=== PATIENT | female | born 1990 | race Caucasian/White ===

== ENCOUNTER 2016-08-15 18:12 | Emergency (ER) | payer OTHER, BC ==
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
[2016-08-15 19:11] VITALS: BP 132/81
== END 2016-08-15 19:09 | disposition home or self-care (01) ==
LOC: ER 18:12
DX: O9A.212 Injury, poisoning and certain other consequences of external causes complicating pregnancy, second trimester (principal); S39.91XA Unspecified injury of abdomen, initial encounter; V49.40XA Driver injured in collision with unspecified motor vehicles in traffic accident, initial encounter; O26.892 Other specified pregnancy related conditions, second trimester; R10.84 Generalized abdominal pain; R00.0 Tachycardia, unspecified; O99.89 Other specified diseases and conditions complicating pregnancy, childbirth and the puerperium; M79.642 Pain in left hand; O16.2 Unspecified maternal hypertension, second trimester; Z3A.16 16 weeks gestation of pregnancy; Z88.2 Allergy status to sulfonamides
CPT/HCPCS: 99284

== ENCOUNTER 2016-11-26 18:49 | Outpatient (CLI) | payer BC ==
[2016-11-26 19:52] LABS: APPEARANCE,URINE SLIGHTLY-CLOUDY; BILIRUBIN,URINE NEGATIVE (NEGATIVE); GLUCOSE, URINE NEGATIVE (NEGATIVE); KETONES,URINE NEGATIVE (NEGATIVE); LEUKOCYTE ESTERASE,URINE TRACE (NEGATIVE); NITRITE,URINE NEGATIVE (NEGATIVE); PROTEIN,URINE NEGATIVE (NEGATIVE); URINE SPECIFIC GRAVITY 1.013; UROBILINOGEN,URINE NEGATIVE mg/dL (<2.0)
[2016-11-26 19:58] LABS: URINE BARBITURATES SCREEN NEGATIVE; URINE METHADONE SCREEN NEGATIVE; URINE OPIATES LOW NEGATIVE; URINE PHENCYCLIDINE SCREEN NEGATIVE
== END 2016-11-26 19:56 | disposition home or self-care (01) ==
LOC: LC 18:49
PROVIDERS: ATTEND Student in an Organized Health Care Education/Training Program
PROC: 4A1HXCZ Monitoring of Products of Conception, Cardiac Rate, External Approach (ICD-10-PCS; principal; 2016-11-26)
DX: O47.02 False labor before 37 completed weeks of gestation, second trimester (principal); O36.8120 Decreased fetal movements, second trimester, not applicable or unspecified; Z3A.27 27 weeks gestation of pregnancy
CPT/HCPCS: 80307; 81001

== ENCOUNTER 2018-10-04 13:23 | Emergency (ER) | payer BC ==
[2018-10-04 13:35] VITALS: BP 154/92
[2018-10-04] MEDS ORDERED: KETOROLAC TROMETHAMINE INJ/PF 30 MG/1 ML SDV IM ONE (13:49)
--- NOTE | 2018-10-04 13:51 | ER Document Report ---
ED Medical Screen (RME) - General Chief Complaint: Possible Kidney Stone Stated Complaint: LEFT FLANK PAIN, ABDOMINAL PAIN Time Seen by Provider: 10/04/18 13:44 Primary Care Provider: LISA JACKSON MD [Primary Care Provider] - Follow up as needed Mode of Arrival: Ambulatory Information source: Patient TRAVEL OUTSIDE OF THE [place] IN LAST 30 DAYS: No - HPI Patient complains to provider of: LEFT FLANK PAIN Notes: 10/04/18 13:50 Patient here with complaints of left flank and abdominal pain. She states that she was woke up at 4 AM with sudden pain/contraction type feeling in her left lower back, flank, lower abdomen area. She was seen in urgent care and was told that she has signs of a urinary tract infection and was placed on antibiotics. She states that she continues to get waves of severe pain. She denies any pain currently. She has no personal history of kidney stones, but there is a family history of kidney stones. Urine was negative at the urgent care. Exam No distress, nontoxic-appearing. Lungs clear and equal throughout. Heart sounds normal. Mild left-sided CVA tenderness to percussion. Plan CBC, CMP, lipase, urine, urine , CT abdomen pelvis stone protocol, IM Toradol. An initial examination was made on the patient as part of the triage process, and it was determined a more comprehensive evaluation was necessary. Initial labs were ordered and patient was transferred to another provider in the ED who assumed care and finished evaluation and plan. - Related Data Allergies/Adverse Reactions: Sulfa (Sulfonamide Antibiotics) Allergy (Severe, Verified 10/04/18 13:26) Hives Past Medical History - Social History Chew tobacco use (# tins/day): No Frequency of alcohol use: None Drug Abuse: None - Past Medical History Cardiac Medical History: Reports: Hx Hypercholesterolemia, Hx Hypertension Neurological Medical History: Reports: Hx Migraine Renal/ Medical History: Denies: Hx Peritoneal Dialysis Past Surgical History: Reports: Hx Cholecystectomy - Immunizations Immunizations up to date: Yes Hx Diphtheria, Pertussis, Tetanus Vaccination: Yes Physical Exam - Vital signs Vitals: Temp Pulse Resp BP Pulse Ox 98.3 F 85 16 154/92 H 97 10/04/18 13:33 10/04/18 13:33 10/04/18 13:33 10/04/18 13:33 10/04/18 13:33 Course - Vital Signs Vital signs: Temp Pulse Resp BP Pulse Ox 98.3 F 85 16 154/92 H 97 10/04/18 13:33 10/04/18 13:33 10/04/18 13:33 10/04/18 13:33 10/04/18 13:33 Doctor's Discharge - Discharge Referrals: LISA JACKSON MD [Primary Care Provider] - Follow up as needed
[2018-10-04 14:23] LABS: ABSOLUTE EOSINOPHILS # (AUTO) 0.2 10^3/uL (0.0-0.6); ABSOLUTE LYMPHOCYTES (AUTO) 1.5 10^3/uL (0.5-4.7); ABSOLUTE MONOCYTES (AUTO) 0.6 10^3/uL (0.1-1.4); ABSOLUTE NEUT (AUTO) 6.6 10^3/uL (1.7-8.2); BASOPHILS % (AUTO) 0.4 % (0-2); EOSINOPHILS % (AUTO) 2.3 % (0-6); HEMATOCRIT 39.5 % (36.0-47.0); HEMOGLOBIN 13.2 g/dL (12.0-15.5); LYMPHOCYTES % (AUTO) 17.3 % (13-45); MEAN CORPUSCULAR HEMOGLOBIN 28.4 pg (27.0-33.4); MEAN CORPUSCULAR HGB CONC 33.3 g/dL (32.0-36.0); MEAN CORPUSCULAR VOLUME 85 fl (80-97); MONOCYTES % (AUTO) 6.3 % (3-13); PLATELET COUNT 303 10^3/uL (150-450); RED BLOOD COUNT 4.63 10^6/uL (3.72-5.28); RED CELL DISTRIBUTION WIDTH 13.6 % (11.5-14.0); SEGMENTED NEUTROPHILS % (AUTO) 73.7 % (42-78); TOTAL CELLS COUNTED % (AUTO) 100 %; WHITE BLOOD COUNT 8.9 10^3/uL (4.0-10.5)
[2018-10-04 14:28] LABS: APPEARANCE,URINE CLEAR; BILIRUBIN,URINE NEGATIVE (NEGATIVE); GLUCOSE, URINE NEGATIVE (NEGATIVE); KETONES,URINE NEGATIVE (NEGATIVE); LEUKOCYTE ESTERASE,URINE NEGATIVE (NEGATIVE); NITRITE,URINE POSITIVE (NEGATIVE); PROTEIN,URINE NEGATIVE (NEGATIVE); URINE SPECIFIC GRAVITY 1.012
[2018-10-04 14:29] LABS: COLOR,URINE ORANGE
[2018-10-04 14:39] LABS: ALANINE AMINOTRANSFERASE 53 U/L (9-52); ALBUMIN 4.5 g/dL (3.5-5.0); ALKALINE PHOSPHATASE 83 U/L (38-126); ANION GAP 11 (5-19); ASPARTATE AMINO TRANSFERASE 28 U/L (14-36); BILIRUBIN,TOTAL 0.5 mg/dL (0.2-1.3); BLOOD UREA NITROGEN 12 mg/dL (7-20); CALCIUM 9.6 mg/dL (8.4-10.2); CARBON DIOXIDE 26 mmol/L (22-30); CHLORIDE 105 mmol/L (98-107); GLUCOSE 88 mg/dL (75-110); LIPASE 110.5 U/L (23-300); POTASSIUM 4.3 mmol/L (3.6-5.0); SODIUM 142.4 mmol/L (137-145); TOTAL PROTEIN 7.8 g/dL (6.3-8.2)
--- NOTE | 2018-10-04 15:32 | RADIOLOGY REPORT (SQ) ---
EXAM DESCRIPTION: CT ABD/PELVIS NO ORAL OR IV COMPLETED DATE/TIME: 10/04/2018 3:18 pm REASON FOR STUDY: LEFT FLANK AND ABDO PAIN COMPARISON: 06/29/2012 TECHNIQUE: CT scan of the abdomen and pelvis performed without intravenous or oral contrast. Images reviewed with lung, soft tissue, and bone windows. Reconstructed coronal and sagittal MPR images revi ewed. All images stored on PACS. All CT scanners at this facility use dose modulation, iterative reconstruction, and/or weight based d osing when appropriate to reduce radiation dose to as low as reasonably achievable (ALARA). [facility]: Dose Right [facility]: CareDose [facility]: Dose Right [facility]: Teradose 4D [facility]: Smart Th[employer]chemy RADIATION DOSE: CT Rad equipment meets quality standard of care and radiation dose reduction techniq ues were employed. CTDIvol: 17.3 mGy. DLP: 897 mGy-cm.mGy. LIMITATIONS: None. FINDINGS: LOWER CHEST: No significant findings. No nodules or infiltrates. NON-CONTRASTED LIVER, SPLEEN, ADRENALS: Evaluation limited by lack of IV contrast. No identified sign ificant masses. PANCREAS: No masses. No peripancreatic inflammatory changes. GALLBLADDER: Surgically absent. RIGHT KIDNEY AND URETER: No cysts identified. No solid masses. Tiny parenchymal calcified stones. No hydronephrosis or hydroureter. LEFT KIDNEY AND URETER: No cysts identified. No solid masses. Tiny parenchymal calcified stones. 2 mm calcified stone in the distal left ureter with mild hydronephrosis -hydroureter. AORTA AND RETROPERITONEUM: No aneurysm. No retroperitoneal masses or adenopathy. BOWEL AND PERITONEAL CAVITY: No obvious masses or inflammatory changes. No free fluid. APPENDIX: Normal. PELVIS, BLADDER, AND ABDOMINAL WALL:No abnormal masses. No free fluid. Unremarkable bladder. BONES: No acute findings. OTHER: No other significant finding. IMPRESSION: 2 mm calcified stone in the distal left ureter with mild hydronephrosis -hydroureter. TECHNICAL DOCUMENTATION: JOB ID: [id number] Quality ID # [id number]: Final reports with documentation of one or more dose reduction techniques (e.g., Au tomated exposure control, adjustment of the mA and/or kV according to patient size, use of iterative reconstruction technique) 2010 [employer]- All Rights Reserved Reading location - IP/workstation name: [email or web address]
[2018-10-04] MEDS ORDERED: METOCLOPRAMIDE HCL 10 MG TABLET PO ONE (15:37)
--- NOTE | 2018-10-04 15:47 | ER Document Report ---
ED General - General Chief Complaint: Possible Kidney Stone Stated Complaint: LEFT FLANK PAIN, ABDOMINAL PAIN Time Seen by Provider: 10/04/18 13:44 Primary Care Provider: LISA JACKSON MD [Primary Care Provider] - Follow up as needed Mode of Arrival: Ambulatory Information source: Patient TRAVEL OUTSIDE OF THE [place] IN LAST 30 DAYS: No - HPI Patient complains to provider of: Suprapubic pain Onset: Other - 4:00 this morning Onset/Duration: Sudden Quality of pain: Sharp Severity: Severe Pain Level: 4 Associated symptoms: denies: Chills, Fever Exacerbated by: Denies Relieved by: Denies Similar symptoms previously: No Recently seen / treated by doctor: No Notes: 27-year-old female here with suprapubic pain and also some left-sided back pain. This sharp stabbing pain awakened her from sleep around 4:00 this morning. She went to see the doctor at the [facility]. Told her she had a UTI. Pain is worse. No fevers or chills. Emesis x2. No previous history of anything like this in the past. - Related Data Allergies/Adverse Reactions: Sulfa (Sulfonamide Antibiotics) Allergy (Severe, Verified 10/04/18 13:26) Hives Past Medical History - General Information source: Patient - Social History Smoking Status: Never Smoker Chew tobacco use (# tins/day): No Frequency of alcohol use: None Drug Abuse: None Family History: Reviewed & Not Pertinent Patient has suicidal ideation: No Patient has homicidal ideation: No - Past Medical History Cardiac Medical History: Reports: Hx Hypercholesterolemia, Hx Hypertension Neurological Medical History: Reports: Hx Migraine Renal/ Medical History: Denies: Hx Peritoneal Dialysis Past Surgical History: Reports: Hx Cholecystectomy - Immunizations Immunizations up to date: Yes Hx Diphtheria, Pertussis, Tetanus Vaccination: Yes Review of Systems - Review of Systems Notes: Constitutional: No fevers. No chills. EENT: No eye redness. No eye pain. No ear pain. No sore throat. Cardiovascular: No chest pain. No palpitations. Respiratory: No cough. No shortness of breath. No respiratory distress. Gastrointestinal: No abdominal pain. No nausea, vomiting, or diarrhea. Genitourinary: Positive for vaginal pain Musculoskeletal: Positive for left low back pain Skin: No rash or lesions. Lymphatic: No swollen lymph nodes. Neurologic: No headache. No syncope. Psychiatric: No suicidal or homicidal ideation. Physical Exam - Vital signs Vitals: Temp Pulse Resp BP Pulse Ox 98.3 F 85 16 154/92 H 97 10/04/18 13:33 10/04/18 13:33 10/04/18 13:33 10/04/18 13:33 10/04/18 13:33 - Notes Notes: General: Well-developed, well-nourished. In no acute distress. Non-toxic appearing. Cardiac: Well-perfused. Regular rate and rhythm. No murmurs, rubs, or gallops. Pulmonary: No respiratory distress. No cyanosis. Bilateral lung fiels are clear to auscultation. Abdominal: Non-distended. Non-rigid. Bowels sounds are present in all four quadrants. No guarding or rebound. HEENT: Head is atraumatic. Conjunctivae not reddened. No tearing. PERRL. EOMI. Orbits atraumatic. No periorbital swelling or erythema. Oropharynx is without erythema, swelling, or exudates. Neck: Supple. No adenopathy. No meningismus. Dermatologic: Warm with good turgor. No rash. Atraumatic. Chest: Atraumatic. No chest wall tenderness to palpation. Musculoskeletal: Moves all extremities well. No range of motion deficits. no muscular or joint tenderness. No paraspinal muscle tenderness. no midline spinal tenderness or step-off. Genitourinary: Examination deferred Neurologic: No gross neurologic deficits. Psychiatric: Normal mood. Course - Re-evaluation Re-evalutation: 10/04/18 15:44 No sign of UTI. There is a tiny left distal ureteral stone identified by CT. We will go ahead and give the patient some Reglan as she is having a little bit of nauseousness. Discharge her home with instructions for kidney stones. [place] as needed for moderate to severe pain. Also encouraged to ibuprofen use for mild to moderate pain. - Vital Signs Vital signs: Temp Pulse Resp BP Pulse Ox 98.3 F 85 16 154/92 H 97 10/04/18 13:33 10/04/18 13:33 10/04/18 13:33 10/04/18 13:33 10/04/18 13:33 - Laboratory Result Diagrams: 10/04/18 13:35 10/04/18 13:35 Laboratory results interpreted by me: 10/04/18 10/04/18 13:35 13:35 ALT 53 H Urine Nitrite POSITIVE H Urine Urobilinogen 4.0 H Discharge - Discharge Clinical Impression: Kidney stone Condition: Good Disposition: HOME, SELF-CARE Instructions: Kidney Stone (OM) Additional Instructions: Push clear fluids to increase urine output which will help push the stone along. Return to the ER at any time if you have intractable pain or vomiting. Follow- up with your primary care doctor as a routine basis. Prescriptions: Hydrocodone/Acetaminophen [[place] 5-325 mg Tablet] 1 tab PO Q6HP PRN #12 tablet PRN Reason: Metoclopramide HCl [Reglan 10 mg Tablet] 1 tab PO Q6HP PRN #20 tablet PRN Reason: Forms: Elevated Blood Pressure Referrals: LISA JACKSON MD [Primary Care Provider] - Follow up as needed
== END 2018-10-04 16:12 | disposition home or self-care (01) ==
LOC: ER 13:23
DX: N13.2 Hydronephrosis with renal and ureteral calculous obstruction (principal); R11.2 Nausea with vomiting, unspecified; I10 Essential (primary) hypertension; R10.2 Pelvic and perineal pain; M54.5 Low back pain; Z88.2 Allergy status to sulfonamides; Z90.49 Acquired absence of other specified parts of digestive tract
CPT/HCPCS: 99284; 96372; 36415; 83690; 85025; 81025; 80053; 81001; 74176; J1885

== ENCOUNTER 2018-10-06 22:35 | Emergency (ER) | payer BC ==
[2018-10-06 23:21] LABS: APPEARANCE,URINE CLEAR; BILIRUBIN,URINE NEGATIVE (NEGATIVE); GLUCOSE, URINE NEGATIVE (NEGATIVE); KETONES,URINE NEGATIVE (NEGATIVE); LEUKOCYTE ESTERASE,URINE NEGATIVE (NEGATIVE); NITRITE,URINE POSITIVE (NEGATIVE); PROTEIN,URINE 30 mg/dL (NEGATIVE); URINE SPECIFIC GRAVITY 1.008
[2018-10-06 23:26] LABS: COLOR,URINE ORANGE
[2018-10-06] MEDS ORDERED: NORMAL SALINE 1000 ML 1,000 ML IV ONE (23:34)
[2018-10-06] MEDS ORDERED: ONDANSETRON HCL INJ/PF 4 MG/2 ML SDV IV ONE (23:34)
[2018-10-06] MEDS ORDERED: ACETAMINOPHEN 325 MG TABLET PO ONE (23:37)
--- NOTE | 2018-10-06 23:45 | ER Document Report ---
ED Medical Screen (RME) - General Chief Complaint: Fever Stated Complaint: FEVER Time Seen by Provider: 10/06/18 23:29 TRAVEL OUTSIDE OF THE [place] IN LAST 30 DAYS: No - HPI Notes: 10/06/18 23:41 Patient is a 27-year-old female reports to the emergency department for fever and left flank pain. Patient reports that she was seen here in the emergency department on Saturday and diagnosed with a kidney stone and a UTI. Patient has been taking Macrobid, Pyridium, ibuprofen, and Wallace as needed for the pain. Patient reports that she has developed new symptoms. Patient states she had a 103 temperature at home. Patient complaint of chills, shaking, nausea and vomited once today. Patient reports that she generally is feeling worse and hurts all over. - Related Data Allergies/Adverse Reactions: Sulfa (Sulfonamide Antibiotics) Allergy (Severe, Verified 10/04/18 13:26) Hives Past Medical History - Past Medical History Cardiac Medical History: Reports: Hx Hypercholesterolemia, Hx Hypertension Neurological Medical History: Reports: Hx Migraine Renal/ Medical History: Denies: Hx Peritoneal Dialysis Past Surgical History: Reports: Hx Cholecystectomy - Immunizations Immunizations up to date: Yes Hx Diphtheria, Pertussis, Tetanus Vaccination: Yes Physical Exam - Vital signs Vitals: Temp Pulse Resp BP Pulse Ox 101 F H 116 H 25 H 146/101 H 98 10/06/18 22:54 10/06/18 22:54 10/06/18 22:54 10/06/18 22:54 10/06/18 22:54 - Abdominal Inspection: Normal Distension: No distension Bowel sounds: Normal Tenderness: Tender - Mild lower abdominal tenderness, + left CVA tenderness. Organomegaly: No organomegaly Course - Re-evaluation Re-evalutation: 10/06/18 23:43 Due to patient's recent diagnosis of kidney stone and UTI as well as worsening symptoms to include fever I have ordered a septic work-up as well as IV fluids. Patient is tachycardic at 116, temp in triage 101. Tylenol ordered for fever. I have greeted and performed a rapid initial assessment of this patient. A comprehensive ED assessment and evaluation of the patient, analysis of test results and completion of the medical decision making process will be conducted by additional ED providers. - Vital Signs Vital signs: Temp Pulse Resp BP Pulse Ox 101 F H 116 H 25 H 146/101 H 98 10/06/18 22:54 10/06/18 22:54 10/06/18 22:54 10/06/18 22:54 10/06/18 22:54 - Laboratory Laboratory results interpreted by me: 10/06/18 23:00 Urine Protein 30 H Urine Blood SMALL H Urine Nitrite POSITIVE H Urine Urobilinogen 4.0 H
[2018-10-07] MEDS ORDERED: CEFTRIAXONE 1 GM/D5W RTU 1 GM/50 ML RTUPB IV ONE (00:30)
[2018-10-07 00:36] LABS: ABSOLUTE EOSINOPHILS # (AUTO) 0.1 10^3/uL (0.0-0.6); ABSOLUTE MONOCYTES (AUTO) 0.8 10^3/uL (0.1-1.4); ABSOLUTE NEUT (AUTO) 8.1 10^3/uL (1.7-8.2); BASOPHILS % (AUTO) 0.2 % (0-2); EOSINOPHILS % (AUTO) 0.8 % (0-6); HEMATOCRIT 38.6 % (36.0-47.0); LYMPHOCYTES % (AUTO) 10.2 % (13-45); MEAN CORPUSCULAR HEMOGLOBIN 28.5 pg (27.0-33.4); MEAN CORPUSCULAR HGB CONC 33.6 g/dL (32.0-36.0); MEAN CORPUSCULAR VOLUME 85 fl (80-97); MONOCYTES % (AUTO) 7.6 % (3-13); PLATELET COUNT 272 10^3/uL (150-450); RED BLOOD COUNT 4.55 10^6/uL (3.72-5.28); RED CELL DISTRIBUTION WIDTH 13.1 % (11.5-14.0); SEGMENTED NEUTROPHILS % (AUTO) 81.2 % (42-78); TOTAL CELLS COUNTED % (AUTO) 100 %
[2018-10-07] MEDS ORDERED: KETOROLAC TROMETHAMINE INJ/PF 30 MG/1 ML SDV IV ONE ×2 (00:53→04:26)
[2018-10-07 00:58] LABS: ALANINE AMINOTRANSFERASE 106 U/L (9-52); ALBUMIN 4.4 g/dL (3.5-5.0); ALKALINE PHOSPHATASE 180 U/L (38-126); ANION GAP 15 (5-19); ASPARTATE AMINO TRANSFERASE 36 U/L (14-36); BILIRUBIN,DIRECT 0.4 mg/dL (0.0-0.4); BILIRUBIN,TOTAL 1.2 mg/dL (0.2-1.3); BLOOD UREA NITROGEN 5 mg/dL (7-20); CALCIUM 9.8 mg/dL (8.4-10.2); CARBON DIOXIDE 26 mmol/L (22-30); CHLORIDE 97 mmol/L (98-107); GLUCOSE 91 mg/dL (75-110); POTASSIUM 3.5 mmol/L (3.6-5.0); SODIUM 137.7 mmol/L (137-145); TOTAL PROTEIN 7.8 g/dL (6.3-8.2)
[2018-10-07 00:58] LABS: VENOUS BLOOD BASE EXCESS 1.2 mmol/L; VENOUS BLOOD HCO3 26.8 mmol/L (20-32); VENOUS BLOOD PCO2 46.7 mmHg (35-63); VENOUS BLOOD PH 7.38 (7.30-7.42)
--- NOTE | 2018-10-07 02:14 | RADIOLOGY REPORT (SQ) ---
CLINICAL HISTORY: fever, abdominal pain, left flank pain COMPARISON: None. TECHNIQUE: CT ABDOMEN PELVIS WITHOUT IV CONTRAST on 10/07/2018 1:27 AM CDT This exam was performed according to our departmental dose-optimization program, which includes automated exposure control, adjustment of the mA and/or kV according to patient size and/or use of iterative reconstruction technique. FINDINGS: Lower lungs are clear. Abdomen: The liver is normal in appearance. There is no biliary dilatation. Cholecystectomy was performed. The pancreas and spleen are normal in appearance. There are several punctate upper pole left renal calculi. There is a punctate lower pole right renal calculus. There is mild bilateral hydronephrosis. There are bilateral punctate distal ureteral calculi. Abdominal aorta is normal in course and caliber without aneurysm. There is no free air. There is no retroperitoneal adenopathy. Pelvis: There is no bowel obstruction. Urinary bladder is unremarkable. There is no free fluid. Uterus is normal in appearance. Appendix is normal. Skeleton: There are no acute osseous findings. No suspicious bony lesions. IMPRESSION: Minimal left nephrolithiasis with mildly obstructing punctate bilateral distal ureteral calculi.
--- NOTE | 2018-10-07 03:01 | ER Document Report ---
ED Fever - General Chief Complaint: Fever Stated Complaint: FEVER Time Seen by Provider: 10/06/18 23:29 Primary Care Provider: NEFTALI RASHID PA-C [Primary Care Provider] - Follow up as needed TRAVEL OUTSIDE OF THE [place] IN LAST 30 DAYS: No - HPI Notes: Patient is a 27-year-old female reports to the emergency department for fever and left flank pain. Patient reports that she was seen here in the emergency department on Saturday and diagnosed with a kidney stone and a UTI. Patient states that the Urgent Care had originally placed her on the Macrobid for the UTI was told to continue the antibiotic. Patient has been taking Macrobid, Pyridium, ibuprofen, and [place] as needed for the pain. Patient reports that she has developed new symptoms. Patient states she had a 103 temperature at home. Patient complaint of chills, shaking, nausea and vomited once today. Patient r eports that she generally is feeling worse and hurts all over. She denies vaginal discharge or bleeding. - Related Data Allergies/Adverse Reactions: Sulfa (Sulfonamide Antibiotics) Allergy (Severe, Verified 10/04/18 13:26) Hives Past Medical History - General Information source: Patient - Social History Smoking Status: Never Smoker Chew tobacco use (# tins/day): No Frequency of alcohol use: None Drug Abuse: None Family History: Reviewed & Not Pertinent Patient has suicidal ideation: No Patient has homicidal ideation: No - Past Medical History Cardiac Medical History: Reports: Hx Hypercholesterolemia, Hx Hypertension Pulmonary Medical History: Reports: None EENT Medical History: Reports: None Neurological Medical History: Reports: Hx Migraine Endocrine Medical History: Reports: Other - Gestational Diabetes Renal/ Medical History: Denies: Hx Peritoneal Dialysis Malignancy Medical History: Reports: None GI Medical History: Reports: None Musculoskeletal Medical History: Reports None Skin Medical History: Reports None Psychiatric Medical History: Reports: None Traumatic Medical History: Reports: None Infectious Medical History: Reports: None Past Surgical History: Reports: Hx Cholecystectomy - Immunizations Immunizations up to date: Yes Hx Diphtheria, Pertussis, Tetanus Vaccination: Yes Review of Systems - Review of Systems Constitutional: See HPI EENT: No symptoms reported Cardiovascular: No symptoms reported Respiratory: No symptoms reported Gastrointestinal: See HPI Genitourinary: See HPI Female Genitourinary: No symptoms reported Musculoskeletal: No symptoms reported Skin: No symptoms reported Hematologic/Lymphatic: No symptoms reported Neurological/Psychological: No symptoms reported Physical Exam - Vital signs Vitals: Temp Pulse Resp BP Pulse Ox 101 F H 116 H 25 H 146/101 H 98 10/06/18 22:54 10/06/18 22:54 10/06/18 22:54 10/06/18 22:54 10/06/18 22:54 Interpretation: Hypertensive, Tachycardic, Tachypneic, Febrile - Notes Notes: GENERAL: Ill-appearing, appears uncomfortable HEAD: Atraumatic, normocephalic. EYES: Pupils equal round and reactive to light, extraocular movements intact, sclera anicteric, conjunctiva are normal. ENT: TMs normal, nares patent, oropharynx clear without exudates. Moist mucous membranes. NECK: Normal range of motion, supple without lymphadenopathy or JVD. LUNGS: Breath sounds clear to auscultation bilaterally and equal. No wheezes rales or rhonchi. HEART: Tachycardiac with regular rhythm without murmurs, rubs or gallops. ABDOMEN: Soft, generalized abdominal discomfort with palpation with more tenderness to the lower abdomen, normoactive bowel sounds. No guarding, no rebound. No masses appreciated. + CVA tenderness to the left. EXTREMITIES: Normal range of motion, no pitting or edema. No clubbing or cyanosis. NEUROLOGICAL: Cranial nerves II through XII grossly intact. Normal speech, normal gait. PSYCH: Normal mood, normal affect. SKIN: Warm, Dry, normal turgor, no rashes or lesions noted. Course - Re-evaluation Re-evalutation: 10/07/18 Upon initial evaluation in triage, patient appeared uncomfortable, IV and blood work initiated as well as IV fluids and anti-nausea medicine and Tylenol for her fever. Will reevaluate when patient in room and on stretcher. 0125: Upon reevaluation patient IV fluids infusing as well as IV antibiotic. It was noted that patient did have nitrites in her urine, she did report that she had been on Pyridium. Small amount of blood noted in her urinalysis and no leuks. Patient does not appear to have a elevated white count. At this time patient had received 15 mg of Toradol as well is Zofran for nausea. Patient reports that her pain level has improved although she is still quite uncomfortable. Repeat abdominal exam revealed that generalized abdominal tenderness with increased tenderness in her lower abdomen. Patient does have left CVA tenderness as well. Discussed case with Dr. Piña as well as lab results and findings from her emergency room visit on Saturday. Due to continued pain and fever patient to have repeat CT scan. 0246: CT scan impression read as minimal left nephrolithiasis with mildly obstructing punctuate bilateral distal ureteral calculi. It was noted that there were several punctuate upper pole left renal calculi as well as puncture lower pole right renal calculus. Discussed findings with Dr. Piña. Due to stones and high fever patient needs to be transferred for urology. Spoke with [facility] and at this time they do not have any beds availab . 0303: Spoke with Dr. Gavin Montes who will admit patient at [facility]. Patient made aware and verbalized understanding of treatment plan. 0427: Patient does have a bed available at [facility]. Transport available after 7 AM. Patient updated on plan of care. Patient states that her d iscomfort is starting to come back. Additional pain medication as well as antinausea medicine ordered for patient. Repeat temperature in room was 98.9. 0630: Resting comfortably on stretcher. Patient states that she feels much more comfortable after receiving the medication. Denies needs at this time. Heart rate 78, oxygen level 98, pressure 119/68. We will continue to monitor closely. 0735: Patient states that her pain level has increased to a 3 out of 5. Patient states that the pain continues to stay in her left flank that and radiates into the lower abdomen. Will order additional pain medication. 07:59: [facility] ETA to the emergency department is 8:30 AM. Patient made aware, is in agreement to go to [facility], denies questions at this time. Patient placed on maintenance fluids and another dose of morphine given for pain. While at bedside patient's heart rate in the 80s, respiratory rate 20, oxygen level 99 on room. - Vital Signs Vital signs: Temp Pulse Resp BP Pulse Ox 98 F 116 H 18 125/77 97 10/07/18 08:01 10/06/18 22:54 10/07/18 08:01 10/07/18 08:01 10/07/18 08:01 - Laboratory Result Diagrams: 10/07/18 00:20 10/07/18 00:20 Laboratory results interpreted by me: 10/06/18 10/07/18 10/07/18 23:00 00:20 00:20 Seg Neutrophils % 81.2 H Lymphocytes % 10.2 L Potassium 3.5 L Chloride 97 L BUN 5 L ALT 106 H Alkaline Phosphatase 180 H Urine Protein 30 H Urine Blood SMALL H Urine Nitrite POSITIVE H Urine Urobilinogen 4.0 H - Diagnostic Test Radiology reviewed: Reports reviewed Discharge - Discharge Clinical Impression: Ureterolithiasis Fever Qualifiers: Fever type: unspecified Qualified Code(s): R50.9 - Fever, unspecified Condition: Stable Disposition: [facility] Referrals: NEFTALI RASHID PA-C [Primary Care Provider] - Follow up as needed
[2018-10-07] MEDS ORDERED: MORPHINE SULFATE 10 MG/ML INJ IV ONE ×2 (04:26→07:36)
[2018-10-07] MEDS ORDERED: ONDANSETRON HCL INJ/PF 4 MG/2 ML SDV IV ONE (04:26)
[2018-10-07] MEDS ORDERED: NORMAL SALINE 1000 ML 1,000 ML IV PRN (07:50)
[2018-10-07 08:33] VITALS: BP 118/73
[2018-10-07] MEDS ORDERED: CEFTRIAXONE 1 GM/D5W RTU 1 GM/50 ML RTUPB IV SCH (12:30)
== END 2018-10-07 08:35 | disposition short-term general hospital (02) ==
LOC: ER 22:35
DX: N13.2 Hydronephrosis with renal and ureteral calculous obstruction (principal); N39.0 Urinary tract infection, site not specified; R31.9 Hematuria, unspecified; R11.2 Nausea with vomiting, unspecified; R50.9 Fever, unspecified; R00.0 Tachycardia, unspecified; R06.82 Tachypnea, not elsewhere classified; I10 Essential (primary) hypertension; Z88.2 Allergy status to sulfonamides
CPT/HCPCS: 96376; 99285; 96361; 96375; 96365; 36415; 87040; 87086; 85025; 81025; 80053; 81001; 82803; 83605; 74176; J1885; J2270; J2405; J7030; J0696

== ENCOUNTER 2018-12-25 21:11 | Emergency (ER) | payer BC ==
[2018-12-25] MEDS ORDERED: HYDROMORPHONE HCL INJ/PF 2 MG/ML AMPULE IV ONE (22:01)
[2018-12-25] MEDS ORDERED: NORMAL SALINE 1000 ML 1,000 ML IV ONE (22:02)
[2018-12-25] MEDS ORDERED: KETOROLAC TROMETHAMINE INJ/PF 30 MG/1 ML SDV IV ONE (22:02)
[2018-12-25] MEDS ORDERED: ONDANSETRON HCL INJ/PF 4 MG/2 ML SDV IV ONE (22:02)
--- NOTE | 2018-12-25 22:04 | ER Document Report ---
ED GI/ - General Chief Complaint: Possible Kidney Stone Stated Complaint: KIDNEY COMPLAINTS Time Seen by Provider: 12/25/18 21:52 Notes: Patient is a 28-year-old female that comes to the emergency department for chief complaint of some flank pain for several days but today she developed sharp flank pain in the left with radiation to the left abdomen and multiple episodes of vomiting. She states she had sepsis from obstructed stones in October, she had stents placed bilaterally, stents have been removed, she has followed with Dr[facility] at [facility]. She has not had a stone since then. She denies stones prior to October. She denies fever/chills. Remaining medical history includes cholecystectomy and C-sections. TRAVEL OUTSIDE OF THE [place] IN LAST 30 DAYS: No - Related Data Allergies/Adverse Reactions: Sulfa (Sulfonamide Antibiotics) Allergy (Severe, Verified 10/04/18 13:26) Hives Past Medical History - General Information source: Patient - Social History Smoking Status: Never Smoker Frequency of alcohol use: None Drug Abuse: None Lives with: Family Family History: Reviewed & Not Pertinent - Past Medical History Cardiac Medical History: Reports: Hx Hypercholesterolemia, Hx Hypertension Neurological Medical History: Reports: Hx Migraine Renal/ Medical History: Denies: Hx Peritoneal Dialysis Past Surgical History: Reports: Hx Cholecystectomy - Immunizations Immunizations up to date: Yes Hx Diphtheria, Pertussis, Tetanus Vaccination: Yes Review of Systems - Review of Systems Constitutional: No symptoms reported EENT: No symptoms reported Cardiovascular: No symptoms reported Respiratory: No symptoms reported Gastrointestinal: See HPI Genitourinary: See HPI Female Genitourinary: No symptoms reported Musculoskeletal: No symptoms reported Skin: No symptoms reported Hematologic/Lymphatic: No symptoms reported Neurological/Psychological: No symptoms reported Physical Exam - Vital signs Vitals: Temp Pulse BP Pulse Ox 98.6 F 104 H 142/95 H 99 12/25/18 21:24 12/25/18 21:24 12/25/18 21:24 12/25/18 21:24 - Notes Notes: GENERAL: Mildly uncomfortable but not in severe distress HEAD: Normocephalic, atraumatic. EYES: Pupils equal, round, and reactive to light. Extraocular movements intact. ENT: Oral mucosa moist, tongue midline. Oropharynx unremarkable. Airway patent. LUNGS: Clear to auscultation bilaterally, no wheezes, rales, or rhonchi. No respiratory distress. HEART: Regular rate and rhythm. No murmur ABDOMEN: There is some generalized left-sided abdominal tenderness without guarding or rigidity. The abdomen is benign. GENITOURINARY: Deferred EXTREMITIES: Moves all 4 extremities spontaneously. No edema, normal radial and dorsalis pedis pulses bilaterally. No cyanosis. BACK: no cervical, thoracic, lumbar midline tenderness. No specific CVA tenderness noted. No saddle anesthesia, normal distal neurovascular exam. Moves all extremities in full range of motion. NEUROLOGICAL: Alert and oriented x3. Normal speech. Cranial nerves II through XII grossly intact. PSYCH: Normal affect, normal mood. SKIN: Warm, dry, normal turgor. No rashes or lesions noted. Course - Re-evaluation Re-evalutation: Patient is uncomfortable on initial exam, this resolved with medication. Pain is radiating from the left flank to the left lower abdomen. Patient given IV fluids. Ultrasound shows no acute finding, no retained stones, no hydronephrosis. CBC, chemistry unremarkable except for mild hypokalemia probably from the vomiting. Urinalysis shows a little bit of hematuria but no infection. I suspect patient is either passing a small stone without obstruction or just passed a stone. Patient is very relieved with these results. I discussed with patient and family. Patient has follow-up with urology already established. Discussed symptom management, follow-up, and return precautions. She states understanding and agreement. - Vital Signs Vital signs: Temp Pulse Resp BP Pulse Ox 98.1 F 97 20 144/93 H 98 12/25/18 23:35 12/25/18 23:35 12/25/18 23:35 12/25/18 23:35 12/25/18 23:35 - Laboratory Result Diagrams: 12/25/18 22:08 12/25/18 22:08 Laboratory results interpreted by me: 12/25/18 22:08 Potassium 3.5 L Discharge - Discharge Clinical Impression: Left flank pain Hematuria Qualifiers: Hematuria type: other microscopic Qualified Code(s): R31.29 - Other microscopic hematuria Condition: Stable Disposition: HOME, SELF-CARE Additional Instructions: Your ultrasound does not show swelling of the kidney or recurrent stones in your kidney. Your overall evaluation is consistent with a small passing stone on the left side. You should build to pass this at home. Take the pain medication if needed, nausea medication if needed, you can take the ibuprofen along with this to help with your symptoms. Follow-up with your urologist for additional evaluation management. Return if you worsen including severe worsening pain, vomiting, fever, or any other concerning or worsening symptoms. Prescriptions: Ibuprofen [Motrin 600 mg Tablet] 600 mg PO Q6HP PRN #24 tablet PRN Reason: Hydrocodone/Acetaminophen [[place] 5-325 mg Tablet] 1 - 2 tab PO ASDIR #12 tablet Ondansetron [Zofran Odt 4 mg Tablet] 1 - 2 tab PO Q4H PRN #15 tab.rapdis PRN Reason: For Nausea/Vomiting
[2018-12-25 22:11] LABS: APPEARANCE,URINE CLEAR; BILIRUBIN,URINE NEGATIVE (NEGATIVE); COLOR,URINE STRAW; GLUCOSE, URINE NEGATIVE (NEGATIVE); KETONES,URINE NEGATIVE (NEGATIVE); LEUKOCYTE ESTERASE,URINE NEGATIVE (NEGATIVE); NITRITE,URINE NEGATIVE (NEGATIVE); PROTEIN,URINE NEGATIVE (NEGATIVE); URINE SPECIFIC GRAVITY 1.006; UROBILINOGEN,URINE NEGATIVE mg/dL (<2.0)
[2018-12-25 22:21] LABS: ABSOLUTE BASOPHILS # (AUTO) 0.1 10^3/uL (0.0-0.2); ABSOLUTE EOSINOPHILS # (AUTO) 0.4 10^3/uL (0.0-0.6); ABSOLUTE LYMPHOCYTES (AUTO) 2.2 10^3/uL (0.5-4.7); ABSOLUTE MONOCYTES (AUTO) 0.4 10^3/uL (0.1-1.4); ABSOLUTE NEUT (AUTO) 6.2 10^3/uL (1.7-8.2); BASOPHILS % (AUTO) 0.8 % (0-2); HEMATOCRIT 38.5 % (36.0-47.0); LYMPHOCYTES % (AUTO) 24.1 % (13-45); MEAN CORPUSCULAR HEMOGLOBIN 28.2 pg (27.0-33.4); MEAN CORPUSCULAR HGB CONC 33.9 g/dL (32.0-36.0); MEAN CORPUSCULAR VOLUME 83 fl (80-97); MONOCYTES % (AUTO) 4.5 % (3-13); PLATELET COUNT 341 10^3/uL (150-450); RED BLOOD COUNT 4.62 10^6/uL (3.72-5.28); RED CELL DISTRIBUTION WIDTH 13.5 % (11.5-14.0); SEGMENTED NEUTROPHILS % (AUTO) 66.6 % (42-78); TOTAL CELLS COUNTED % (AUTO) 100 %; WHITE BLOOD COUNT 9.3 10^3/uL (4.0-10.5)
[2018-12-25 22:36] LABS: ALANINE AMINOTRANSFERASE 32 U/L (9-52); ALBUMIN 4.5 g/dL (3.5-5.0); ALKALINE PHOSPHATASE 77 U/L (38-126); ANION GAP 10 (5-19); ASPARTATE AMINO TRANSFERASE 22 U/L (14-36); BILIRUBIN,DIRECT 0.2 mg/dL (0.0-0.4); BILIRUBIN,TOTAL 0.4 mg/dL (0.2-1.3); BLOOD UREA NITROGEN 9 mg/dL (7-20); CALCIUM 9.7 mg/dL (8.4-10.2); CARBON DIOXIDE 28 mmol/L (22-30); CHLORIDE 102 mmol/L (98-107); GLUCOSE 97 mg/dL (75-110); POTASSIUM 3.5 mmol/L (3.6-5.0); TOTAL PROTEIN 7.3 g/dL (6.3-8.2)
--- NOTE | 2018-12-25 23:03 | RADIOLOGY REPORT (SQ) ---
EXAM DESCRIPTION: RadLex: US RETROPERITONEUM LIMITED CLINICAL HISTORY: 28 years Female; flank pain, vomiting, hx kidney stones TECHNIQUE: Bilateral renal ultrasound was performed. COMPARISON: None. FINDINGS: Visualized portions of IVC and aorta are unremarkable. Right kidney: 9.2 x 4.5 x 4.2 cm. No hydronephrosis or shadowing calculi. Left kidney: 9.6 x 4.5 x 5.2 cm. No hydronephrosis or shadowing calculi. Bladder: Incompletely distended. IMPRESSION: 1. Normal renal sonogram.
[2018-12-25] MEDS ORDERED: HYDROCODONE/ACETAMINOPHEN 5-325 MG (6 TAB/ER DISP) PO PRN (23:17)
[2018-12-25] MEDS ORDERED: ONDANSETRON ODT 4 MG TAB (6 TAB/ER DISP) PO PRN (23:18)
[2018-12-25 23:36] VITALS: BP 144/93
== END 2018-12-25 23:41 | disposition home or self-care (01) ==
LOC: ER 21:11
DX: R31.29 Other microscopic hematuria (principal); R10.9 Unspecified abdominal pain; R11.10 Vomiting, unspecified; I10 Essential (primary) hypertension
CPT/HCPCS: 99284; 96361; 96374; 96375; 36415; 84703; 85025; 80053; 81001; 76775; J1885; J1170; J2405; J7030

== ENCOUNTER 2019-05-28 07:39 | Emergency (ER) | payer BC ==
--- NOTE | 2019-05-28 08:31 | RADIOLOGY REPORT (SQ) ---
EXAM DESCRIPTION: CHEST 2 VIEWS COMPLETED DATE/TIME: 05/28/2019 8:16 am REASON FOR STUDY: Chest Pain COMPARISON: 11/19/2014 EXAM PARAMETERS: NUMBER OF VIEWS: two views TECHNIQUE: Digital Frontal and Lateral radiographic views of the chest acquired. RADIATION DOSE: NA LIMITATIONS: none FINDINGS: LUNGS AND PLEURA: Low volume examination with subtle heterogeneous opacity at the left sinan g base. MEDIASTINUM AND HILAR STRUCTURES: No masses or contour abnormalities. HEART AND VASCULAR STRUCTURES: Heart normal size. No evidence for failure. BONES: No acute findings. HARDWARE: None in the chest. OTHER: No other significant finding. IMPRESSION: Low volume examination with subtle heterogeneous opacity of the left lung base, which ma y reflect atelectasis or developing infection/aspiration. Consider follow-up radiographs in 1 to 2 d ays to evaluate for interval evolution depending upon clinical suspicion for infection. TECHNICAL DOCUMENTATION: JOB ID: [id number] [employer]- All Rights Reserved Reading location - IP/workstation name: [email or web address]
[2019-05-28] MEDS ORDERED: ONDANSETRON HCL INJ/PF 4 MG/2 ML SDV IV ONE ×2 (09:55→13:53)
[2019-05-28] MEDS ORDERED: NORMAL SALINE 1000 ML 1,000 ML IV ONE (10:00)
--- NOTE | 2019-05-28 10:06 | ER Document Report ---
ED GI/ - General Chief Complaint: Lower Abdominal Pain Stated Complaint: CHEST PAIN Time Seen by Provider: 05/28/19 09:37 Primary Care Provider: NEFTALI RASHID PA-C [Primary Care Provider] - Follow up as needed Information source: Patient Notes: Patient complains of generalized abdominal pain worse on the left than the right that started yesterday and also left anterior lower chest pain which also started yesterday. Positive vomiting. Past surgical history includes cholecystectomy, , bilateral renal stents for kidney stones. Denies any rashes. No urinary complaints. Denies . Denies shortness of breath. Pain is sharp. No other complaints. No vaginal discharge. TRAVEL OUTSIDE OF THE [place] IN LAST 30 DAYS: No - Related Data Allergies/Adverse Reactions: Sulfa (Sulfonamide Antibiotics) Allergy (Severe, Verified 05/28/19 07:54) Hives Past Medical History - Social History Smoking Status: Never Smoker Chew tobacco use (# tins/day): No Frequency of alcohol use: None Drug Abuse: None Family History: Reviewed & Not Pertinent Patient has suicidal ideation: No Patient has homicidal ideation: No - Past Medical History Cardiac Medical History: Reports: Hx Hypercholesterolemia, Hx Hypertension Neurological Medical History: Reports: Hx Migraine Renal/ Medical History: Denies: Hx Peritoneal Dialysis Past Surgical History: Reports: Hx Cholecystectomy, Hx Kidney (Renal Surgery) - stents - Immunizations Immunizations up to date: Yes Hx Diphtheria, Pertussis, Tetanus Vaccination: Yes Review of Systems - Review of Systems Cardiovascular: Chest pain, Palpitations Gastrointestinal: Abdominal pain, Vomiting -: Yes All other systems reviewed and negative Physical Exam - Vital signs Vitals: Temp Pulse Resp BP Pulse Ox 99.7 F 123 H 16 143/90 H 100 05/28/19 07:54 05/28/19 07:54 05/28/19 07:54 05/28/19 07:54 05/28/19 07:54 Interpretation: Tachycardic - General General appearance: Appears well, Alert - HEENT Head: Normocephalic, Atraumatic Eyes: Normal Pupils: PERRL Mucous membranes: Dry Pharynx: Normal - Respiratory Respiratory status: No respiratory distress Chest status: Nontender Breath sounds: Normal Chest palpation: Normal - Cardiovascular Rhythm: Tachycardia Heart sounds: Normal auscultation Murmur: No Pulses: Normal: Radial - Abdominal Inspection: Normal Distension: Other - ELEVATED BMI Bowel sounds: Normal Tenderness: Tender, Other - POSITIVE BILATERAL CVA TENDERNESS. No: Guarding, Rebound - Back Back: Normal, Nontender, CVA tenderness - Extremities General upper extremity: Normal inspection, Nontender, Normal color, Normal ROM, Normal temperature General lower extremity: Normal inspection, Nontender, Normal color, Normal ROM, Normal temperature, Normal weight bearing. No: Paulina's sign - Neurological Neuro grossly intact: Yes Cognition: Normal Orientation: AAOx4 María Coma Scale Eye Opening: Spontaneous María Coma Scale Verbal: Oriented María Coma Scale Motor: Obeys Commands María Coma Scale Total: 15 Speech: Normal Motor strength normal: LUE, RUE, LLE, RLE Sensory: Normal - Psychological Associated symptoms: Normal affect, Normal mood - Skin Skin Temperature: Warm Skin Moisture: Dry Skin Color: Normal Course - Re-evaluation Re-evalutation: 05/28/19 10:05 EKG per me shows sinus tachycardia at a rate of 115 with LVH. Normal QRS axis. Nonspecific ST changes. 05/28/19 11:30 Labs reviewed. Chest x-ray per radiologist no acute disease, recommends follow- up question left lower lobe infiltrate. CT abdomen pelvis no acute disease except for question small punctate renal stones. 05/28/19 15:26 CT [place] chest per radiologist is negative for PE. However, there is evidence of a left lower lobe infiltrate which could be consistent with pneumonia. By history patient has been around several people at home with respiratory infections so I believe pneumonia is the most likely diagnosis here. Therefore, I am starting the patient on IV antibiotics and plan to send her home on p.o. antibiotics. Patient is currently stable. 05/28/19 16:46 Patient feels better after IV antibiotics and nebulization treatment. Will discharge home on antibiotics. Patient will return at once if worse or new symptoms and follow-up with her doctor tomorrow. - Vital Signs Vital signs: Temp Pulse Resp BP Pulse Ox 99.7 F 123 H 28 H 118/75 98 05/28/19 07:54 05/28/19 07:54 05/28/19 13:01 05/28/19 13:01 05/28/19 13:01 - Laboratory Result Diagrams: 05/28/19 09:30 05/28/19 09:30 Laboratory results interpreted by me: 05/28/19 05/28/1919 09:30 09:30 09:30 Lymph % (Auto) 5.1 L Absolute Neuts (auto) 8.3 H Seg Neutrophils % 89.1 H Magnesium 1.5 L AST 42 H Urine Blood SMALL H Ur Leukocyte Esterase TRACE H 05/28/19 12:15 Lymph % (Auto) Absolute Neuts (auto) Seg Neutrophils % Magnesium AST Urine Blood SMALL H Ur Leukocyte Esterase Discharge - Discharge Clinical Impression: Chest pain Qualifiers: Chest pain type: unspecified Qualified Code(s): R07.9 - Chest pain, unspecified Abdominal pain Qualifiers: Abdominal location: unspecified location Qualified Code(s): R10.9 - Unspecified abdominal pain LLL pneumonia Qualifiers: Pneumonia type: due to unspecified organism Qualified Code(s): J18.9 - Pneumonia, unspecified organism Condition: Stable Disposition: HOME, SELF-CARE Instructions: Pneumonia ([facility]), Abdominal Pain ([facility]) Additional Instructions: Return at once if worse or new symptoms. Follow-up with your doctor tomorrow for recheck. Take antibiotics as prescribed. Prescriptions: Azithromycin [Zithromax 250 mg Tablet] 250 mg PO ASDIR PRN #6 tablet PRN Reason: Referrals: NEFTALI RASHID PA-C [Primary Care Provider] - Follow up as needed
[2019-05-28] MEDS: HYDROMORPHONE HCL INJ/PF 2 MG/ML AMPULE IV PRN ×2 (10:20→15:06)
[2019-05-28 10:32] LABS: ABSOLUTE EOSINOPHILS # (AUTO) 0.1 10^3/uL (0.0-0.6); ABSOLUTE LYMPHOCYTES (AUTO) 0.5 10^3/uL (0.5-4.7); ABSOLUTE MONOCYTES (AUTO) 0.5 10^3/uL (0.1-1.4); ABSOLUTE NEUT (AUTO) 8.3 10^3/uL (1.7-8.2); BASOPHILS % (AUTO) 0.1 % (0-2); EOSINOPHILS % (AUTO) 0.6 % (0-6); HEMATOCRIT 40.3 % (36.0-47.0); HEMOGLOBIN 13.7 g/dL (12.0-15.5); LYMPHOCYTES % (AUTO) 5.1 % (13-45); MEAN CORPUSCULAR HEMOGLOBIN 28.6 pg (27.0-33.4); MEAN CORPUSCULAR HGB CONC 33.9 g/dL (32.0-36.0); MEAN CORPUSCULAR VOLUME 84 fl (80-97); MONOCYTES % (AUTO) 5.1 % (3-13); PLATELET COUNT 251 10^3/uL (150-450); RED BLOOD COUNT 4.78 10^6/uL (3.72-5.28); RED CELL DISTRIBUTION WIDTH 13.8 % (11.5-14.0); SEGMENTED NEUTROPHILS % (AUTO) 89.1 % (42-78); TOTAL CELLS COUNTED % (AUTO) 100 %; WHITE BLOOD COUNT 9.3 10^3/uL (4.0-10.5)
[2019-05-28 10:47] LABS: ALBUMIN 4.6 g/dL (3.5-5.0); ALKALINE PHOSPHATASE 112 U/L (38-126); ANION GAP 12 (5-19); ASPARTATE AMINO TRANSFERASE 42 U/L (14-36); BILIRUBIN,DIRECT 0.2 mg/dL (0.0-0.4); BILIRUBIN,TOTAL 0.7 mg/dL (0.2-1.3); BLOOD UREA NITROGEN 8 mg/dL (7-20); CARBON DIOXIDE 28 mmol/L (22-30); CHLORIDE 99 mmol/L (98-107); GLUCOSE 103 mg/dL (75-110); POTASSIUM 3.9 mmol/L (3.6-5.0); TOTAL PROTEIN 7.7 g/dL (6.3-8.2)
[2019-05-28 10:50] LABS: APPEARANCE,URINE SLIGHTLY-CLOUDY; BILIRUBIN,URINE NEGATIVE (NEGATIVE); COLOR,URINE YELLOW; GLUCOSE, URINE NEGATIVE (NEGATIVE); KETONES,URINE NEGATIVE (NEGATIVE); LEUKOCYTE ESTERASE,URINE TRACE (NEGATIVE); NITRITE,URINE NEGATIVE (NEGATIVE); PROTEIN,URINE NEGATIVE (NEGATIVE); URINE SPECIFIC GRAVITY 1.017; UROBILINOGEN,URINE NEGATIVE mg/dL (<2.0)
--- NOTE | 2019-05-28 11:18 | RADIOLOGY REPORT (SQ) ---
EXAM DESCRIPTION: CT ABD/PELVIS NO ORAL OR IV COMPLETED DATE/TIME: 05/28/2019 11:06 am REASON FOR STUDY: ABD PAIN COMPARISON: 10/07/2018 TECHNIQUE: CT scan of the abdomen and pelvis performed without intravenous or oral contrast. Images reviewed with lung, soft tissue, and bone windows. Reconstructed coronal and sagittal MPR images revi ewed. All images stored on PACS. All CT scanners at this facility use dose modulation, iterative reconstruction, and/or weight based d osing when appropriate to reduce radiation dose to as low as reasonably achievable (ALARA). [facility]: Dose Right [facility]: CareDose [facility]: Dose Right [facility]: Teradose 4D [facility]: Smart Assembly RADIATION DOSE: CT Rad equipment meets quality standard of care and radiation dose reduction techniq ues were employed. CTDIvol: 15.8 mGy. DLP: 896 mGy-cm.mGy. LIMITATIONS: None. FINDINGS: LOWER CHEST: Minimal atelectasis in the left lung base. NON-CONTRASTED LIVER, SPLEEN, ADRENALS: Evaluation limited by lack of IV contrast. No identified sign ificant masses. PANCREAS: No masses. No peripancreatic inflammatory changes. GALLBLADDER: Surgically absent. RIGHT KIDNEY AND URETER: No suspicious masses. Assessment limited by lack of IV contrast. Single sm all punctate right renal calculi. No hydronephrosis or hydroureter. LEFT KIDNEY AND URETER: No suspicious masses. Assessment limited by lack of IV contrast. Small punc agllardo nonobstructing left renal calculi. No hydronephrosis or hydroureter. AORTA AND RETROPERITONEUM: No aneurysm. No retroperitoneal masses or adenopathy. BOWEL AND PERITONEAL CAVITY: No obvious masses or inflammatory changes. No free fluid. There are sca ttered small mesenteric lymph nodes. These are nonspecific and grossly stable from prior study. APPENDIX: Normal. PELVIS, BLADDER, AND ABDOMINAL WALL:No abnormal masses. No free fluid. Bladder normal. BONES: No significant findings. OTHER: No other significant finding. IMPRESSION: Small punctate bilateral renal stones. No hydronephrosis. No acute findings in the abd omen or pelvis. COMMENT: Quality ID # [id number]: Final reports with documentation of one or more dose reduction techniques (e.g., Automated exposure control, adjustment of the mA and/or kV according to patient size, use of iterative reconstruction technique) TECHNICAL DOCUMENTATION: JOB ID: [id number] [employer]- All Rights Reserved Reading location - IP/workstation name: [email or web address]
--- NOTE | 2019-05-28 12:15 | RADIOLOGY REPORT (SQ) ---
EXAM DESCRIPTION: U/S NON-OB PELVIS TV W/O DOP COMPLETED DATE/TIME: 05/28/2019 12:03 pm REASON FOR STUDY: pain COMPARISON: 09/13/2012 TECHNIQUE: Dynamic and static grayscale images acquired of the pelvis via transvaginal approach and recorded on PACS. Additional selected color Doppler and spectral images recorded. LIMITATIONS: None. FINDINGS: UTERUS: Uterus measures 8.5 x 4.8 x 4.1 cm. ENDOMETRIAL STRIPE: Endometrial stripe is visualized and measures 1.3 cm in thickness. CERVIX: Trace fluid within the cervix. Small nabothian cysts. RIGHT OVARY AND DOPPLER: Normal size measuring 2.6 x 2.2 x 2.6 cm. No worrisome masses. Normal arteri al vascular flow without evidence for torsion. LEFT OVARY AND DOPPLER: Normal size measuring 2.6 x 1.9 x 2.1 cm. No worrisome masses. Normal arteria l vascular flow without evidence for torsion. FREE FLUID: None noted. OTHER: No other significant finding. IMPRESSION: Trace fluid within the cervical canal, likely physiologic. Otherwise, unremarkable pelv ic ultrasound. No findings to explain patient's symptoms. TECHNICAL DOCUMENTATION: JOB ID: [id number] [employer]- All Rights Reserved Rev-10/18 Reading location - IP/workstation name: [email or web address]
[2019-05-28 12:36] LABS: APPEARANCE,URINE SLIGHTLY-CLOUDY; BILIRUBIN,URINE NEGATIVE (NEGATIVE); COLOR,URINE YELLOW; GLUCOSE, URINE NEGATIVE (NEGATIVE); KETONES,URINE NEGATIVE (NEGATIVE); LEUKOCYTE ESTERASE,URINE NEGATIVE (NEGATIVE); NITRITE,URINE NEGATIVE (NEGATIVE); PROTEIN,URINE NEGATIVE (NEGATIVE); URINE SPECIFIC GRAVITY 1.016; UROBILINOGEN,URINE NEGATIVE mg/dL (<2.0)
--- NOTE | 2019-05-28 14:25 | RADIOLOGY REPORT (SQ) ---
EXAM DESCRIPTION: CTA CHEST COMPLETED DATE/TIME: 05/28/2019 2:06 pm REASON FOR STUDY: CHEST PAIN COMPARISON: None. TECHNIQUE: CT scan of the chest performed using helical scanning technique with dynamic intravenous contrast injection. Images reviewed with lung, soft tissue and bone windows. Reconstructed coronal and sagittal MPR images reviewed. Additional 3 dimensional post-processing performed to develop Maximal Intensity Projection images (TX P). All images stored on PACS. All CT scanners at this facility use dose modulation, iterative reconstruction, and/or weight based d osing when appropriate to reduce radiation dose to as low as reasonably achievable (ALARA). [facility]: Dose Right [facility]: CareDose [facility]: Dose Right [facility]: Teradose 4D [facility]: [place] [employer] CONTRAST TYPE AND DOSE: contrast/concentration: Isovue 350.00 mg/ml; Total Contrast Delivered: 65.0 ml; Total Saline Delivered: 34.0 ml 65 mL Isovue 350- low osmolar. Contrast bolus optimized for the pulmonary arteries. Not diagnostic for the aorta. RENAL FUNCTION: BUN 8, creatinine 0.67 RADIATION DOSE: CT Rad equipment meets quality standard of care and radiation dose reduction techniq ues were employed. CTDIvol: 9.9 - 22.6 mGy. DLP: 670 mGy-cm. . LIMITATIONS: Chest radiographs performed on the same day. FINDINGS: LUNGS AND PLEURA: Linear lingular and left lower lobe opacities. Mild patchy left basilar opacities. No pneumothorax. No pleural effusions or pleural calcifications. AORTA AND GREAT VESSELS: No aneurysm. Contrast bolus not optimized for the aorta. HEART: No pericardial effusion. No significant coronary artery calcifications. PULMONARY ARTERIES: No emboli visualized in the main pulmonary arteries or the segmental branches. HILAR AND MEDIASTINAL STRUCTURES: No identified masses or abnormal nodes. HARDWARE: None in the chest. UPPER ABDOMEN: Cholecystectomy. THYROID AND OTHER SOFT TISSUES: No masses. No adenopathy. BONES: No acute or significant finding. 3D MIPS: Confirm above findings. OTHER: No other significant finding. IMPRESSION: No pulmonary embolism. Linear lingular and left lower lobe airspace opacities likely representing atelectasis. More patchy left basilar airspace opacities may represent a developing infection. COMMENT: Quality ID # [id number]: Final reports with documentation of one or more dose reduction techniques (e.g., Automated exposure control, adjustment of the mA and/or kV according to patient size, use of iterative reconstruction technique) TECHNICAL DOCUMENTATION: JOB ID: [id number] [employer]- All Rights Reserved Reading location - IP/workstation name: [email or web address]
[2019-05-28] MEDS ORDERED: CEFTRIAXONE INJ 1000 MG VIAL IV ONE (15:09)
[2019-05-28] MEDS ORDERED: AZITHROMYCIN INJ 500 MG VIAL IV ONE (15:09)
[2019-05-28] MEDS ORDERED: BUDESONIDE NEB 0.5 MG/2 ML AMPUL NEB ONE (15:10)
[2019-05-28] MEDS ORDERED: IPRATROPIUM/ALBUTEROL 0.5-2.5 MG/3 ML AMPUL NEB ONE (15:10)
--- NOTE | 2019-05-28 16:25 | EKG REPORT ---
SEVERITY:- ABNORMAL ECG - SINUS TACHYCARDIA CONSIDER LEFT VENTRICULAR HYPERTROPHY : Confirmed by: Sudha Dominguez MD 28-May-2019 16:24:37
[2019-05-28 17:36] VITALS: BP 113/83
== END 2019-05-28 17:37 | disposition home or self-care (01) ==
LOC: ER 07:39
DX: J18.9 Pneumonia, unspecified organism (principal); R10.9 Unspecified abdominal pain; R07.9 Chest pain, unspecified; E78.00 Pure hypercholesterolemia, unspecified; I10 Essential (primary) hypertension; Z88.2 Allergy status to sulfonamides; Z90.49 Acquired absence of other specified parts of digestive tract; Z87.442 Personal history of urinary calculi
CPT/HCPCS: 93005; 96376; 94640 ×2; 99285; 96361; 96375; 96365; 96367; 36415; 83690; 83735; 84703; 85025; 81025; 80053; 81001; 84484; 71046; 76830; 71275; 74176; 93010; J1170; J0696; J2405; J7030; J0456; J7620

== ENCOUNTER 2020-05-10 13:54 | Emergency (ER) | payer BC ==
[2020-05-10] MEDS ORDERED: NORMAL SALINE 1000 ML 1,000 ML IV ONE (14:38)
[2020-05-10] MEDS ORDERED: KETOROLAC TROMETHAMINE INJ/PF 30 MG/1 ML SDV IV ONE (14:40)
--- NOTE | 2020-05-10 14:43 | ER Document Report ---
ED Medical Screen (RME) - General Chief Complaint: Pain With Urination Stated Complaint: FLANK PAIN Time Seen by Provider: 05/10/20 14:31 Primary Care Provider: NEFTALI RASHID PA-C [Primary Care Provider] - Follow up as needed TRAVEL OUTSIDE OF THE [place] IN LAST 30 DAYS: No - HPI Notes: 05/10/20 14:39 29 year old female presents to the ER today for complaints of right flank pain for the last 3 days that has then progressed into feeling dysuria, pressure and urgency. Patient reports she did have a kidney stone last year which she had to be transferred to [facility] where multiple stents were placed. Reports last menstrual cycle was 04/22/2020. Reports pain is 4/10. Denies any nausea vomiting diarrhea, fevers or chills I have greeted and performed a rapid initial assessment of this patient. A comprehensive ED assessment and evaluation of the patient, analysis of test results and completion of the medical decision making process will be conducted by additional ED providers. PHYSICAL EXAMINATION: GENERAL: Well-appearing, well-nourished and in no acute distress. CV: s1, s2 regular LUNGS: No respiratory distress abd: R cva tenderness appreciated. - Related Data Allergies/Adverse Reactions: Sulfa (Sulfonamide Antibiotics) Allergy (Severe, Verified 05/10/20 14:30) Hives Past Medical History - Past Medical History Cardiac Medical History: Reports: Hx Hypercholesterolemia, Hx Hypertension Neurological Medical History: Reports: Hx Migraine Renal/ Medical History: Denies: Hx Peritoneal Dialysis Past Surgical History: Reports: Hx Cholecystectomy, Hx Kidney (Renal Surgery) - stents - Immunizations Immunizations up to date: Yes Hx Diphtheria, Pertussis, Tetanus Vaccination: Yes Physical Exam - Vital signs Vitals: Temp Pulse Resp BP Pulse Ox 98.4 F 102 H 20 155/95 H 99 05/10/20 14:15 05/10/20 14:15 05/10/20 14:15 05/10/20 14:15 05/10/20 14:15 Course - Vital Signs Vital signs: Temp Pulse Resp BP Pulse Ox 98.4 F 102 H 20 155/95 H 99 05/10/20 14:15 05/10/20 14:15 05/10/20 14:15 05/10/20 14:15 05/10/20 14:15 - Laboratory Lab Results Review: Normal Lab Results Reviewed Laboratory results interpreted by me: 12/08/20 14:42 NO LABS HAVE BEEN DRAWN YET Doctor's Discharge - Discharge Referrals: NEFTALI RASHID PA-C [Primary Care Provider] - Follow up as needed
[2020-05-10 15:07] LABS: ABSOLUTE EOSINOPHILS # (AUTO) 0.4 10^3/uL (0.0-0.6); ABSOLUTE LYMPHOCYTES (AUTO) 2.4 10^3/uL (0.5-4.7); ABSOLUTE MONOCYTES (AUTO) 0.5 10^3/uL (0.1-1.4); ABSOLUTE NEUT (AUTO) 5.6 10^3/uL (1.7-8.2); APPEARANCE,URINE CLEAR; BASOPHILS % (AUTO) 0.5 % (0-2); BILIRUBIN,URINE NEGATIVE (NEGATIVE); COLOR,URINE STRAW; EOSINOPHILS % (AUTO) 4.9 % (0-6); GLUCOSE, URINE NEGATIVE (NEGATIVE); HEMATOCRIT 39.8 % (36.0-47.0); HEMOGLOBIN 13.6 g/dL (12.0-15.5); KETONES,URINE NEGATIVE (NEGATIVE); LEUKOCYTE ESTERASE,URINE TRACE (NEGATIVE); LYMPHOCYTES % (AUTO) 26.7 % (13-45); MEAN CORPUSCULAR HEMOGLOBIN 28.2 pg (27.0-33.4); MEAN CORPUSCULAR HGB CONC 34.2 g/dL (32.0-36.0); MEAN CORPUSCULAR VOLUME 83 fl (80-97); MONOCYTES % (AUTO) 5.4 % (3-13); NITRITE,URINE NEGATIVE (NEGATIVE); PLATELET COUNT 324 10^3/uL (150-450); PROTEIN,URINE NEGATIVE (NEGATIVE); RED BLOOD COUNT 4.83 10^6/uL (3.72-5.28); RED CELL DISTRIBUTION WIDTH 13.1 % (11.5-14.0); SEGMENTED NEUTROPHILS % (AUTO) 62.5 % (42-78); TOTAL CELLS COUNTED % (AUTO) 100 %; URINE SPECIFIC GRAVITY 1.014; UROBILINOGEN,URINE NEGATIVE mg/dL (<2.0)
[2020-05-10 15:28] LABS: ALBUMIN 4.6 g/dL (3.5-5.0); ALKALINE PHOSPHATASE 96 U/L (38-126); ANION GAP 9 (5-19); ASPARTATE AMINO TRANSFERASE 23 U/L (14-36); BILIRUBIN,DIRECT 0.2 mg/dL (0.0-0.4); BILIRUBIN,TOTAL 0.5 mg/dL (0.2-1.3); BLOOD UREA NITROGEN 14 mg/dL (7-20); CALCIUM 9.8 mg/dL (8.4-10.2); CARBON DIOXIDE 29 mmol/L (22-30); CHLORIDE 103 mmol/L (98-107); GLUCOSE 101 mg/dL (75-110); POTASSIUM 4.5 mmol/L (3.6-5.0); TOTAL PROTEIN 7.8 g/dL (6.3-8.2)
--- NOTE | 2020-05-10 15:31 | RADIOLOGY REPORT (SQ) ---
EXAM DESCRIPTION: U/S RETROPERITON (RENAL/AORTA) IMAGES COMPLETED DATE/TIME: 05/10/2020 3:16 pm REASON FOR STUDY: R flank pain x 3 days COMPARISON: 12/25/2018. TECHNIQUE: Dynamic and static grayscale images acquired of the kidneys and bladder and recorded on P ACS. Additional selected color Doppler and spectral images recorded. LIMITATIONS: None. FINDINGS: RIGHT KIDNEY: Normal size. Normal echogenicity. No solid or suspicious masses. No hydronep hrosis. No calcifications. LEFT KIDNEY: Normal size. Normal echogenicity. No solid or suspicious masses. No hydronephrosis. No calcifications. BLADDER: No masses. OTHER FINDINGS: No other significant finding. IMPRESSION: NORMAL RENAL AND BLADDER ULTRASOUND. TECHNICAL DOCUMENTATION: JOB ID: [id number] [employer]- All Rights Reserved Reading location - IP/workstation name: [email or web address]
--- NOTE | 2020-05-10 17:14 | ER Document Report ---
ED GI/ - General Chief Complaint: Pain With Urination Stated Complaint: FLANK PAIN Time Seen by Provider: 05/10/20 14:31 Primary Care Provider: NEFTALI RASHID PA-C [Primary Care Provider] - Follow up as needed TRAVEL OUTSIDE OF THE [place] IN LAST 30 DAYS: No - HPI Notes: 05/10/20 17:18 29-year-old female presents to ED for evaluation of bilateral sided flank pain for the last 2-3 days. Patient reports pain radiates into the corresponding lower abdomen. Patient Denies nausea, vomiting, but reports mild dysuria. Patient denies vaginal discharge, chest pain, shortness of breath, rash, fever, chills, or diarrhea. Reports reports of nephrolithiasis in the past. Patient states that she has had stents placed in the past to alleviate stones. Denies any recent stents or antibiotic usage. 05/10/20 18:15 - Related Data Allergies/Adverse Reactions: Sulfa (Sulfonamide Antibiotics) Allergy (Severe, Verified 05/10/20 14:30) Hives Past Medical History - Social History Smoking Status: Never Smoker Family History: Reviewed & Not Pertinent - Past Medical History Cardiac Medical History: Reports: Hx Hypercholesterolemia, Hx Hypertension Neurological Medical History: Reports: Hx Migraine Renal/ Medical History: Denies: Hx Peritoneal Dialysis Past Surgical History: Reports: Hx Cholecystectomy, Hx Kidney (Renal Surgery) - stents - Immunizations Immunizations up to date: Yes Hx Diphtheria, Pertussis, Tetanus Vaccination: Yes Review of Systems - Review of Systems Notes: Constitutional: Negative for fever. HENT: Negative for sore throat. Eyes: Negative for visual changes. Cardiovascular: Negative for chest pain. Respiratory: Negative for shortness of breath. Gastrointestinal: + for abdominal pain, without vomiting or diarrhea. Genitourinary: + for dysuria. Musculoskeletal: Negative for back pain. Skin: Negative for rash. Neurological: Negative for headaches, weakness or numbness. 10 point ROS negative except as marked above and in HPI. Physical Exam - Vital signs Vitals: Temp Pulse Resp BP Pulse Ox 98.4 F 102 H 20 155/95 H 99 05/10/20 14:15 05/10/20 14:15 05/10/20 14:15 05/10/20 14:15 05/10/20 14:15 General: No acute distress. Alert and oriented x3. Sitting comfortably in a stretcher. Skin: No jaundice, pallor, petechiae, or rashes. Warm and dry. Heart: Regular rate and rhythm. S1,S2. No murmurs, rubs, or gallops. Lungs: Clear to auscultation bilaterally. No wheezes, rhonchi, rales. Equal chest expansion. No retractions. Abdomen: Soft, pain with deep palpation to right lower abdomen, nondistended. Positive bowel sounds in all 4 quadrants. No masses. Right CVA tenderness. Back: No midline spinal TTP. No paraspinous muscular TTP. Neuro: GCS 15. Moving all extremities without discomfort. Psych: Mood and affect appropriate. Course - Re-evaluation Re-evalutation: 05/10/20 17:22 29-year-old female presents to ED for evaluation of bilateral sided flank pain. Patient was evaluated with CBC, CMP, UA, and testing. Lab work was found to be unremarkable for acute findings. Mild leukocyte esterase and mild bacteria noted in the urine. Patient underwent evaluation for possible kidney stones with renal ultrasound. Ultrasound does not show evidence of hydronephrosis, nephrolithiasis, or stranding. Patient will be placed on a course of Keflex, Toradol, hydrocodone. patient understands to follow up with primary care physician as well as urology. Patient understands indications to return to the ER. Patient is agreeable with this plan. 05/10/20 20:28 - Vital Signs Vital signs: Temp Pulse Resp BP Pulse Ox 98.4 F 94 16 144/98 H 100 05/10/20 14:15 05/10/20 18:27 05/10/20 18:27 05/10/20 18:27 05/10/20 18:27 - Laboratory Results Result Diagrams: 05/10/20 14:52 05/10/20 14:52 Laboratory Results Interpreted: 05/10/20 14:52 Ur Leukocyte Esterase TRACE H Critical Laboratory Results Reviewed: No Critical Results - Radiology Results Critical Radiology Results Reviewed: No Critical Results Discharge - Discharge Clinical Impression: Flank pain, acute UTI (urinary tract infection) Qualifiers: Urinary tract infection type: acute cystitis Hematuria presence: without hematuria Qualified Code(s): N30.00 - Acute cystitis without hematuria Condition: Stable Disposition: HOME, SELF-CARE Prescriptions: Ketorolac Tromethamine [Toradol 10 mg Tablet] 10 mg PO Q8HP PRN #15 tablet PRN Reason: Cephalexin [Keflex] 500 mg PO BID #10 capsule Hydrocodone/Acetaminophen [Maybell 5-325 mg Tablet] 1 tab PO TID #12 tablet Phenazopyridine HCl [Pyridium] 200 mg PO TID #6 tablet Referrals: NEFTALI RASHID PA-C [Primary Care Provider] - Follow up as needed
[2020-05-10] MEDS ORDERED: KETOROLAC TROMETHAMINE 60 MG/2 ML SDV IM ONE (17:54)
[2020-05-10] MEDS ORDERED: PHENAZOPYRIDINE HCL 200 MG TABLET PO ONE (17:54)
[2020-05-10] MEDS ORDERED: CEPHALEXIN 500 MG CAPSULE PO ONE (17:54)
[2020-05-10 18:28] VITALS: BP 144/98
== END 2020-05-10 18:31 | disposition home or self-care (01) ==
LOC: ER 13:54
DX: N30.00 Acute cystitis without hematuria (principal); R10.30 Lower abdominal pain, unspecified; R10.9 Unspecified abdominal pain; E78.00 Pure hypercholesterolemia, unspecified; I10 Essential (primary) hypertension; Z90.49 Acquired absence of other specified parts of digestive tract
CPT/HCPCS: 99285; 96372; 36415; 84702; 85025; 80053; 81001; 76770; J1885; J3490